=== PATIENT | female | born 1990 | race African-American/Black ===

== ENCOUNTER 2020-12-27 05:27 | Emergency (ER) | payer OTHER ==
[~2020-12-27 05:27] MED LIST: K-DUR20 MEQ PO; NAPROXEN500 MG PO; PREDNISONE 20MG20 MG PO; VISTARIL25 MG PO
[2020-12-27 07:29] LABS: MONOSPOT (MONONUCLEOSIS) NEGATIVE (NEGATIVE)
[2020-12-27] MEDS ORDERED: MEDROL 4MG DOSEP4 MG PO (07:43)
== END 2020-12-27 08:02 | disposition home or self-care (01) ==
LOC: FER 05:27
PROVIDERS: Emergency Medicine Emergency Medical Services
DX: J02.9 Acute pharyngitis, unspecified (principal); I10 Essential (primary) hypertension; K21.9 Gastro-esophageal reflux disease without esophagitis; E78.5 Hyperlipidemia, unspecified; D64.9 Anemia, unspecified; Z79.899 Other long term (current) drug therapy; Z88.1 Allergy status to other antibiotic agents
CPT/HCPCS: 70360; 86308; 87070; 87880; J0561; J7512

== ENCOUNTER 2021-04-02 14:52 | Emergency (ER) | payer OTHER ==
[~2021-04-02 14:52] MED LIST changes: +MEDROL 4MG DOSEP4 MG PO
[2021-04-02 16:43] LABS: BASOPHIL 0.4 % (0-2); EOSINOPHIL 0.5 % (0-5); HCT 36.5 % (37.0-47.0); HGB 12.7 g/dl (12.5-16.0); LYMPHOCYTE 32.6 % (15-48); MCHC 34.8 g/dL (32.0-36.0); MCV 86.1 fL (78.0-100.0); MONOCYTE 6.1 % (0-12); MPV 9.6 fL (6.0-9.5); NEUTROPHIL 60.3 % (41-80); NRBC 0; PLT 332 K/uL (150-400); RBC 4.24 M/uL (4.20-5.40); WBC 7.9 K/uL (4.0-10.5)
[2021-04-02 17:16] LABS: CREATININE 0.73 mg/dL (0.51-0.95); POTASSIUM 3.3 mmol/L (3.5-5.1)
[2021-04-02 17:17] LABS: ALBUMIN 3.5 g/dL (3.4-5.0); BILIRUBIN - TOTAL 0.2 mg/dL (0.2-1.0); GLOBULIN (CALCULATION) 4.2 g/dL; TOTAL PROTEIN 7.7 g/dL (6.4-8.2)
== END 2021-04-02 18:02 | disposition home or self-care (01) ==
LOC: FER 14:52
PROVIDERS: Emergency Medicine
DX: E87.6 Hypokalemia (principal)
CPT/HCPCS: 36415; 80053; 83735; 84484; 85025; 93005

== ENCOUNTER 2021-06-12 21:57 | Emergency (ER) | payer OTHER ==
[2021-06-13 00:56] LABS: BASOPHIL 0.3 % (0-2); EOSINOPHIL 0.6 % (0-5); HCT 39.1 % (37.0-47.0); HGB 13.2 g/dl (12.5-16.0); LYMPHOCYTE 42.7 % (15-48); MCHC 33.8 g/dL (32.0-36.0); MCV 85.9 fL (78.0-100.0); MONOCYTE 6.8 % (0-12); MPV 10.1 fL (6.0-9.5); NEUTROPHIL 49.4 % (41-80); NRBC 0; PLT 329 K/uL (150-400); RBC 4.55 M/uL (4.20-5.40); RDW 13.3 % (11.5-14.0); WBC 8.7 K/uL (4.0-10.5)
[2021-06-13 01:15] LABS: ALBUMIN 3.8 g/dL (3.4-5.0); BILIRUBIN - TOTAL 0.2 mg/dL (0.2-1.0); BUN/CREAT RATIO (CALC) 10.8 RATIO; CREATININE 0.74 mg/dL (0.51-0.95); GLOBULIN (CALCULATION) 4.2 g/dL; POTASSIUM 2.9 mmol/L (3.5-5.1)
== END 2021-06-13 02:35 | disposition home or self-care (01) ==
LOC: FER 21:57
PROVIDERS: Emergency Medicine
DX: R07.89 Other chest pain (principal); K21.9 Gastro-esophageal reflux disease without esophagitis; E78.5 Hyperlipidemia, unspecified; I10 Essential (primary) hypertension; Z20.822 Contact with and (suspected) exposure to COVID-19
CPT/HCPCS: 36415; 71046; 80053; 84484; 85025; 93005; J1885; U0002

== ENCOUNTER 2021-09-06 04:36 | Emergency (ER) | payer OTHER ==
[2021-09-06 05:42] LABS: CORONAVIRUS 2019 SARS-COV-2 NEGATIVE (NEGATIVE); INFLUENZA A NAA NEGATIVE (NEGATIVE)
== END 2021-09-06 05:40 | disposition home or self-care (01) ==
LOC: FER 04:36
PROVIDERS: Emergency Medicine Emergency Medical Services
DX: J02.9 Acute pharyngitis, unspecified (principal); K12.2 Cellulitis and abscess of mouth; I10 Essential (primary) hypertension; Z88.1 Allergy status to other antibiotic agents; Z20.822 Contact with and (suspected) exposure to COVID-19
CPT/HCPCS: 87880; J0561; J7512; U0002